=== PATIENT | female | born 1980 | race Caucasian/White ===

== ENCOUNTER → 2016-05-05 | Outpatient (CLI) | payer BC ==
[2016-05-05 16:10] LABS: PROTHROMBIN TIME 10.6 secs (9.7-11.4)
[2016-05-05 16:20] LABS: AMYLASE 33 U/L (30-110); ASPARTATE AMINO TRANSFERASE 36 IU/L (8-39); BILIRUBIN,TOTAL 0.5 mg/dL (0.3-1.2); BLOOD UREA NITROGEN 9 mg/dL (7-22); CHLORIDE 103 meq/L (98-112); CREATININE 0.6 mg/dL (0.50-1.20); EST GLOMERULAR FILTRATION > 60 (>60 ml/min/1.73m(2)); GLUCOSE 77 mg/dL (78-110); POTASSIUM 4.2 meq/L (3.8-5.2); SODIUM 142 meq/L (135-145); TOTAL PROTEIN 7.5 g/dL (6.1-8.0)
[2016-05-08 12:21] LABS: HEP B CORE IGM ANTIBODY Negative (Negative); HEPATITIS B SURFACE AG Negative (Negative)
[2016-05-08 15:19] LABS: HEPATITIS C ANTIBODY SCREEN Negative (Negative)
== END ==
LOC: MOB LAB 14:34
PROVIDERS: ATTEND Nurse Practitioner
DX: R10.11 Right upper quadrant pain (principal); R19.7 Diarrhea, unspecified; R11.0 Nausea
CPT/HCPCS: 36415; 80053; 82150; 83690; 85610; 86705; 86709; 86803; 87340

== ENCOUNTER → 2016-05-06 | Outpatient (CLI) | payer BC ==
--- NOTE | 2016-05-06 09:47 | DI ---
US ABDOMEN LIMITED,05/06/2016 8:45 AM: Clinical History: Right upper quadrant pain. Previous Exam: None at this facility. Findings: Multiple views of the right upper quadrant are obtained, and demonstrate mild increased echogenicity of the liver. Visualized portions of the pancreas are unremarkable. The aorta is unremarkable. The pancreas is not well seen, but is grossly normal. There are no stones. The right kidney measures 11.2 cm in length without hydronephrosis nor nephrolithiasis. Impression: Mild fatty infiltration of the liver otherwise unremarkable.
== END ==
LOC: US 08:40
PROVIDERS: ATTEND Nurse Practitioner
DX: R10.11 Right upper quadrant pain (principal); K76.0 Fatty (change of) liver, not elsewhere classified
CPT/HCPCS: 76705